=== PATIENT | male | born 1945 | race Caucasian/White ===

== ENCOUNTER 2017-05-01 10:00 | Emergency (ER) | payer OTHER, BC ==
--- NOTE | 2017-05-01 10:23 | PDOC ---
History of Present Illness - General Chief Complaint: Vomiting/Diarrhea Stated Complaint: CHILLS, VOMITING, DIARRHEA Time Seen by Provider: 05/01/17 10:23 History Source: Patient - History of Present Illness Initial Comments: 05/01/17 10:39 71 y/o male presents with a 2 day history of chills. Symptoms started suddenly Thursday evening at home after an afternoon of playing golf. Pt was unable to eat much on , had 3 episodes of non-bloody, non-bilious vomiting, and 1 episode of watery diarrhea. Pt has taken Aleve without much relief of symptoms. Pt felt warm, according to his , but did not take a temperature. Chills worsened this morning after breakfast. denies any recent travel, any sick contacts, or change in diet. Pt denies chest pain, SOB, urinary symptoms, abdominal pain. 05/01/17 10:46 Severity: moderate Associated Symptoms: reports: fever/chills, nausea/vomiting Aspirin Received prior to arrival: Yes: no aspirin today Past History - Past Medical History Allergies/Adverse Reactions: Allergies Allergy/AdvReac Type Severity Reaction Status Date / Time No Known Allergies Allergy Verified 05/01/17 10:19 Home Medications: Ambulatory Orders Aspirin Coated [Ecotrin -] 81 mg PO DAILY 05/01/17 Levofloxacin [Levaquin] 750 mg PO DAILY #10 tablet 05/01/17 Metoprolol Succinate [Toprol Xl] 50 mg PO DAILY 05/01/17 Naproxen Sodium [Aleve] 660 mg PO ONCE 05/01/17 Tamsulosin HCl [Flomax] 0.8 mg PO DAILY 05/01/17 Review of Systems - Review of Systems Able to Perform ROS?: Yes Is the patient limited Prydeinig proficient: No Constitutional: Yes: See HPI HEENTM: No: Symptoms Reported Respiratory: No: Symptoms reported Cardiac (ROS): No: Symptoms Reported ABD/GI: Yes: Symptoms Reported, See HPI : No: Symptoms Reported Musculoskeletal: No: Symptoms Reported Integumentary: No: Symptoms Reported Neurological: No: Symptoms reported Psychiatric: No: Anxiety, Depression Endocrine: No: Symptoms Reported Hematologic/Lymphatic: No: Symptoms Reported All Other Systems: Reviewed and Negative *Physical Exam - Physical Exam General Appearance: Yes: Nourished, Appropriately Dressed, Obese HEENT: positive: EOMI, EDMUNDO, Normal ENT Inspection Neck: positive: Trachea midline, Normal Thyroid Respiratory/Chest: positive: Lungs Clear, Normal Breath Sounds Cardiovascular: positive: Regular Rhythm, Regular Rate Gastrointestinal/Abdominal: positive: Normal Bowel Sounds, Soft Musculoskeletal: positive: Normal Inspection Extremity: positive: Normal Capillary Refill, Normal Inspection Integumentary: positive: Normal Color, Clammy Neurologic: positive: Fully Oriented, Alert, Normal Mood/Affect, Normal Response ED Treatment Course - LABORATORY CBC & Chemistry Diagram: 05/01/17 10:55 05/01/17 10:55 *DC/Admit/Observation/Transfer Diagnosis at time of Disposition: UTI (urinary tract infection) Qualifiers: Urinary tract infection type: site unspecified Hematuria presence: without hematuria Qualified Code(s): N39.0 - Urinary tract infection, site not specified Prostatitis Qualifiers: Prostatitis type: acute Qualified Code(s): N41.0 - Acute prostatitis - Discharge Dispostion Disposition: HOME Condition at time of disposition: Good - Prescriptions Prescriptions: Levofloxacin [Levaquin] 750 mg PO DAILY #10 tablet - Referrals Referrals: Ed Grayson MD [Primary Care Provider] - - Patient Instructions Printed Discharge Instructions: DI for Urinary Tract Infection (UTI), DI for Acute Prostatitis Additional Instructions: Mr Bianchi - Sorry that you feel so bad. Don't cover up when you get the shaking chills.... it will make them worse. Return to us if worse or new symptoms occur. Follow up with your doctor next week. Five 20 ounce bottles of water each day. Dre- Dr. Josh Santana - Post Discharge Activity
[2017-05-01] MEDS ORDERED: SODIUM CHLORIDE 1,000 ML IV STA (10:31)
[2017-05-01] MEDS ORDERED: ACETAMINOPHEN 1000 MG/100 ML VIAL (NON FORMULARY) IVPB ONE (10:33)
[2017-05-01 10:36] VITALS: BMI 36.9
[2017-05-01 11:13] LABS: BASOPHIL 0.6 % (0-2.0); EOSINOPHIL 0.4 % (0-4.5); MCH 28.8 pg (25.7-33.7); MEAN CELL VOLUME 87.2 fl (80-96); MEAN PLT VOLUME 8.4 fl (7.5-11.1); NEUTROPHILS 92.8 % (42.8-82.8); PLATELET COUNT 179 K/MM3 (134-434); RDW 13.5 % (11.9-15.9); WHITE BLOOD COUNT 7.3 K/mm3 (4.0-10.8)
[2017-05-01] MEDS ORDERED: ACETAMINOPHEN INJECTION 100 ML IVPB ONE (11:14)
[2017-05-01 11:28] LABS: ALBUMIN 4.1 g/dl (3.5-5.0); ALK PHOS 63 U/L (32-92); ANION GAP 10 (8-16); CALCIUM 8.6 mg/dl (8.4-10.2); CO2 26 mmol/L (22-28); GLUCOSE,RANDOM 132 mg/dl (74-106); SGOT/AST 27 U/L (10-42); SGPT/ALT 23 U/L (10-40); TOT PROT 7.2 g/dl (6.4-8.3)
[2017-05-01 11:31] LABS: ACTIVATED PTT 26.5 SECONDS (24.0-38.9)
[2017-05-01 11:36] LABS: INR 1.39 (0.82-1.09); PROTHROMBIN TIME (PATIENT) 15.5 SEC (10.2-13.0)
[2017-05-01 12:14] LABS: VENOUS PH 7.38 (7.32-7.42)
[2017-05-01 12:29] VITALS: BP 128/75; PULSE 107; TEMP 99.5
[2017-05-01 13:22] LABS: PH,URINE 5.5 (4.5-8); URINE APPEARANCE Clear; URINE BILIRUBIN Negative (NEGATIVE); URINE BLOOD Negative (NEGATIVE); URINE GLUCOSE (UA) Negative (NEGATIVE); URINE KETONE Trace (NEGATIVE); URINE NITRITE Negative (NEGATIVE)
[2017-05-01 13:23] LABS: URINE COLOR YELLOW; URINE LEUK ESTERASE TRACE (NEGATIVE); URINE PROTEIN 1+ (NEGATIVE)
[2017-05-01 13:24] LABS: URINE BACTERIA MODERATE /hpf (NEGATIVE); URINE RBC 0-3 /hpf (0-3)
[2017-05-01] MEDS ORDERED: SODIUM CHLORIDE 1,000 ML IV SCH (13:30)
[2017-05-01] MEDS ORDERED: LEVOFLOXACIN 750 MG IVPB 750 MG/150 ML BAG IVPB ONE ×2 (13:35→14:14)
[2017-05-01 14:45] LABS: CPK 161 IU/L (39-308); TROPONIN I < 0.02 ng/ml (0.00-0.05)
--- NOTE | 2017-05-02 19:34 | EKG ---
Test Reason : Blood Pressure : / mmHG Vent. Rate : 109 BPM Atrial Rate : 109 BPM P-R Int : 160 ms QRS Dur : 114 ms QT Int : 382 ms P-R-T Axes : 047 -33 024 degrees QTc Int : 514 ms SINUS TACHYCARDIA LEFT AXIS DEVIATION NONSPECIFIC ST AND T WAVE ABNORMALITY ABNORMAL ECG NO PREVIOUS ECGS AVAILABLE Confirmed by MARKELL JAMA MD ([id number]) on 05/02/2017 7:34:11 PM Referred By: MANJU Confirmed By:MARKELL JAMA MD
--- NOTE | 2017-05-02 21:03 | PDOC ---
Patient Follow-up (Call Back) - Post ED Follow - Up Condition at time of discharge: Good Disposition at time of original discharge: HOME Reason for Call Back: Abnwl. Lab (Patient's blood cultures show positive cocci in the anaerobic bottles. This is most likely secondary to contaminated however I did call patient to make sure he was feeling better patient said that he was feeling much better his symptoms had resolved and he was back to normal.) Signs/Symptoms Improved: Yes
== END 2017-05-01 15:30 | disposition home or self-care (01) ==
LOC: FER 10:00
PROC: 3E03329 Introduction of Other Anti-infective into Peripheral Vein, Percutaneous Approach (ICD-10-PCS; principal; 2017-05-01)
PROC: 3E0337Z Introduction of Electrolytic and Water Balance Substance into Peripheral Vein, Percutaneous Approach (ICD-10-PCS; 2017-05-01)
PROC: 3E033NZ Introduction of Analgesics, Hypnotics, Sedatives into Peripheral Vein, Percutaneous Approach (ICD-10-PCS; 2017-05-01)
DX: N39.0 Urinary tract infection, site not specified (principal); N41.0 Acute prostatitis
CPT/HCPCS: 36415; 71010-TC; 80053; 81003; 81015; 82550; 82553; 82803; 83605; 84484; 85025; 85610; 85730; 86850; 86900; 86901; 87040; 87077; 87086; 87804; 93005; 96361; 96365; 96375; 99284-25

== ENCOUNTER 2017-06-02 09:30 | Inpatient (IN) | payer OTHER, BC ==
[2017-05-28 09:54] VITALS: BMI 38.4
--- NOTE | 2017-05-29 09:15 | HP ---
[facility] - Chief Complaint Chief Complaint: right knee pain - Past Medical History Allergies/Adverse Reactions: Allergies Allergy/AdvReac Type Severity Reaction Status Date / Time No Known Allergies Allergy Verified 05/28/17 09:44 - Current Medications Current Medications: Home Medications Medication Instructions Recorded Aspirin Coated [Ecotrin -] 81 mg PO DAILY 05/01/17 Metoprolol Succinate [Toprol Xl] 50 mg PO DAILY 05/01/17 Naproxen Sodium [Aleve] 660 mg PO DAILY 05/01/17 Tamsulosin HCl [Flomax] 0.8 mg PO DAILY 05/01/17 Ferrous Sulfate [Iron] 325 mg PO DAILY 05/28/17 [facility] Physical Exam - Physical Examination General Appearance: Well Nourished, Well Developed, Alert & Oriented x3 ENT: Clear Lung: Normal air movement Heart: Regular rate & rhythm Extremities: Other (right knee- + swelling, + ttp, decr rom, nvi xrays show grade 4 tricompartmental djd) Neurological: Intact, Alert, Oriented Satellite Impression/Plan - Impression/Plan Impression: right knee djd Operative Procedure: right rekha tkr Date to be Performed: 06/02/17
[2017-06-02] MEDS ORDERED: oxyCODONE HCL 10 MG SUSTAINED ACTING TABLET PO ONE (10:01)
[2017-06-02] MEDS ORDERED: GABAPENTIN 300 MG CAPSULE (FP) PO ONE (10:01)
[2017-06-02] MEDS ORDERED: CEFAZOLIN 2 GM in DEXTROSE 5%-WATER - 50 ML IVPB ONE (10:01)
[2017-06-02] MEDS ORDERED: TRANEXAMIC ACID 1000 MG/10 ML VIAL IVPUSH ONE (10:01)
[2017-06-02] MEDS ORDERED: CELECOXIB 200 MG CAPSULE PO ONE (10:01)
[2017-06-02 10:42] LABS: INR 1.1 (0.82-1.09); PROTHROMBIN TIME (PATIENT) 12.3 SEC (10.2-13.0)
[2017-06-02] MEDS ORDERED: BUPIVACAINE HCL/PF (5 MG/ML) 30 ML VIAL IJ ONE (11:16)
[2017-06-02] MEDS ORDERED: MIDAZOLAM HCL 2 MG/2 ML SINGLE DOSE VIAL ONE ×2 (11:16→14:06)
[2017-06-02] MEDS ORDERED: SODIUM CHLORIDE 0.9% P/F 10 ML VIAL IJ ONE (11:16)
[2017-06-02] MEDS ORDERED: DEXAMETHASONE SOD PHOSPHATE/PF 10 MG/ML SDV ONE (11:16)
[2017-06-02] MEDS ORDERED: VANCOMYCIN 1,000 MG VIAL (RESTRICTED TO ID ONLY) ONE (12:15)
[2017-06-02] MEDS ORDERED: ceFAZolin SODIUM 1 GM VIAL ONE ×2 (12:15→13:19)
[2017-06-02] MEDS ORDERED: BUPIVACAINE HCL/PF 0.5% (5MG/ML) 10 ML VIAL ONE (13:03)
[2017-06-02] MEDS ORDERED: ONDANSETRON 4 MG/2 ML VIAL IVPUSH PRN (13:07)
[2017-06-02] MEDS ORDERED: MAGNESIUM HYDROX 2400MG/30ML ORAL SUSPENSION 30 ML CUP PO PRN (13:07)
[2017-06-02] MEDS ORDERED: MAG HYDROX/AL HYDROX/SIMETH 30 ML UNIT-DOSE CUP PO PRN (13:07)
[2017-06-02] MEDS ORDERED: LACTATED RINGERS SOLUTION 1,000 ML IV SCH (13:15)
[2017-06-02] MEDS ORDERED: TRANEXAMIC ACID 1000 MG/10 ML VIAL ONE ×2 (13:19→13:37)
[2017-06-02] MEDS ORDERED: oxyCODONE HCL 5 MG TABLET PO PRN (13:40)
--- NOTE | 2017-06-02 15:11 | OP ---
Operative Note - Note: Operative Date: 06/02/17 (marie) Pre-Operative Diagnosis: right knee djd Operation: right rekha tkr Post-Operative Diagnosis: Same as Pre-op Surgeon: Pete Singh Tree Puller: Alexander Riddle Anesthesiologist/FILM DEVELOPING MACHINE OPERATOR: Jose E Wyman Anesthesia: Spinal, Local Specimens Removed: bone fragments Estimated Blood Loss (mls): 100 Operative Report Dictated: Yes
--- NOTE | 2017-06-02 15:16 | SPEC ---
DATE OF OPERATION: 06/02/2017 PREOPERATIVE DIAGNOSIS: Degenerative joint disease, right knee. POSTOPERATIVE DIAGNOSIS: Degenerative joint disease, right knee. PROCEDURE: Right total knee replacement with robotic-assisted navigation (MAKOplasty). SURGICAL ATTENDING: Pete Singh MD BUFFET SERVER: ZEE Fitzgerald ANESTHESIA: Regional and spinal. CLOSURE: A Press-Fit Triathlon knee system with a 5 femur, 6 tibia, 9 polyethylene, a 35 patella; No. 1 Vicryl, fascia; 0 and 2-0 for subcutaneous; and 3-0 Monocryl subcuticular with skin glue for skin; 4-0 undyed Vicryl for pin sites. ESTIMATED BLOOD LOSS: Less than 100 mL. COMPLICATIONS: None. CONDITION: To recovery room in stable condition. DESCRIPTION OF OPERATIVE PROCEDURE: Patient was taken to the operating room on June 02, 2017. Regional and spinal anesthesia was administered by the anesthesiologist. IV Kefzol was administered prophylactically prior to the case as well as TXA. The right lower extremity was prepped and draped in the usual sterile fashion. The midline 10- to 12-cm longitudinal incision was made. Hemostasis was achieved with Bovie cautery. Sharp dissection was carried down to the extensor mechanism which was perform the procedure. Medial parapatellar arthrotomy was then performed, leaving a cuff of tissue for later closure. The patella was inverted and the knee was flexed up. The fat pad was excised. Subperiosteal dissection was done on the anteromedial proximal tibia until the knee was able to be brought forward. This was facilitated by taking the ACL, PCL and medial and lateral menisci. Checkpoints were placed in both the femur and in the tibia. Two parallel threaded pins were drilled superior to the knee joint through the already made incision from anterior to posterior just going through the anterior cortex but just engaging but not going through the posterior cortex. Two threaded pins were drilled through 2 small stab incisions in parallel fashion 1 handbreadth below the tibial tubercle through the anterior cortex of the tibia and engaging but not going through the posterior cortex. Both sets of pins were attached to navigation arrays for the CHEY system. The knee was then registered with the navigation system with center of rotation of the hip, medial and lateral malleoli and multiple sites both on the tibia and on the femur. Confirmation of excellent registration was confirmed by "popping the bubbles." At this time, the knee was thoroughly inspected to remove all osteophytes around the knee. The knee was then tensioned in varus/valgus at both full extension and at 90 degrees of flexion to ascertain our gaps. The virtual position of the components was optimized to ensure equal gaps throughout the range of motion. Once this was performed, the robot was brought into the field, was registered. The bone was cut as per the specifications on both the tibia and on the femur. The box cuts were then made as well. Excellent trial stability was obtained on the femur. The tibial baseplate was allowed to "find itself" and then was clipped into place. Confirmation of excellent external rotation of that component was confirmed by the navigation device as well.The patella was calibered for thickness and cut at the appropriate level. The appropriate lollipop was used to drill 3 holes in the patella and a trial asymmetric patellar button was applied. The knee was taken through a range of motion and found to have excellent stability from full extension to full flexion with excellent tracking of the patella. The trial components were then removed. The lug holes were drilled in the femur. The cementless keel was punched in the tibia. The real Press-Fit components were malleted into place, first with the tibia and then with the femur, and then the patella was crimped into place as well. The real polyethylene liner was then clipped into place. Range of motion, stability and tracking were as described earlier. The knee was thoroughly irrigated with copious amounts of irrigation. Vancomycin powder was placed inside the joint. The medial parapatellar arthrotomy was then closed using No. 1 Vicryl interrupted suture. Post closure of the arthrotomy, the knee was taken through a range of motion and found to have no undue tension on the repair. The subcutaneous was then pulse antibiotic irrigated, closed with 0 and 2-0 Vicryl and 3-0 Monocryl subcuticular with skin glue for the skin. Prior to closure, the checkpoints were removed as were the threaded pins. The tibial pin sites were closed with 4-0 undyed Vicryl. A sterile pressure Aquacel dressing was applied. No tourniquet was used during the case. The total blood loss was approximately 100 mL. No complication. Patient was transferred to recovery in stable condition. Jamie [id number]
[2017-06-02] MEDS ORDERED: ACETAMINOPHEN 325 MG TABLET (FP) ONE (16:05)
[2017-06-02] MEDS ORDERED: oxyCODONE HCL 5 MG TABLET ONE (16:12)
[2017-06-02] MEDS ORDERED: ONDANSETRON 4 MG/2 ML VIAL ONE (16:14)
[2017-06-02] MEDS ORDERED: oxyCODONE HCL 5 MG TABLET PO ONE (16:25)
[2017-06-02] MEDS ORDERED: ACETAMINOPHEN 325 MG TABLET (FP) PO ONE (16:28)
[2017-06-02] MEDS: ACETAMINOPHEN 325 MG TABLET (FP) PO SCH ×2 (17:35→21:16)
[2017-06-02] MEDS: oxyCODONE HCL 5 MG TABLET PO PRN (19:13)
[2017-06-02] MEDS ORDERED: CEFAZOLIN 2 GM in DEXTROSE 5%-WATER - 50 ML IVPB SCH (20:00)
[2017-06-02] MEDS: CEFAZOLIN 2 GM/D5W 2 GM/50 ML ML IVPB SCH (21:16)
[2017-06-02] MEDS: SENNOSIDES/DOCUSATE COMBO (SENNA PLUS) TABLET (UD) PO SCH (21:16)
[2017-06-03] MEDS: ACETAMINOPHEN 325 MG TABLET (FP) PO SCH ×4 (06:31→19:47)
[2017-06-03] MEDS: CEFAZOLIN 2 GM/D5W 2 GM/50 ML ML IVPB SCH (06:31)
--- NOTE | 2017-06-03 08:36 | PN ---
Progress Note (short form) - Note Progress Note: Ortho Pt seen and examined s/p right rekha tkr pod #1 Selected Entries 06/03/17 05:00 Temperature 98.6 F Pulse Rate 89 Respiratory 16 Rate Blood Pressure 139/84 Laboratory Tests 06/03/17 07:45 WBC Pending Hgb Pending Hct Pending Plt Count Pending dressing c/d/i, calf soft ,nt rom 0-40, nvi a/p PT dvt ppx pain control d/c home tomorrow if stable
[2017-06-03 08:44] LABS: HEMATOCRIT 44.6 % (35.4-49); HEMOGLOBIN 14.7 GM/dl (11.7-16.9); MCH 29.5 pg (25.7-33.7); MEAN CELL VOLUME 89.4 fl (80-96); MEAN PLT VOLUME 8.9 fl (7.5-11.1); PLATELET COUNT 218 K/MM3 (134-434); RBC 4.99 M/mm3 (4.00-5.60); RDW 13.6 % (11.9-15.9); WHITE BLOOD COUNT 11.4 K/mm3 (4.0-10.8)
[2017-06-03] MEDS: TAMSULOSIN HCL 0.4 MG CAP.ER.24H (FP) PO SCH (08:48)
[2017-06-03] MEDS: ASPIRIN 325 MG TABLET PO SCH (08:48)
[2017-06-03] MEDS: FERROUS SO4 325 MG TABLET (FP) PO SCH (09:26)
[2017-06-03] MEDS: PANTOPRAZOLE 40 MG TABLET (FP) PO SCH (09:26)
[2017-06-03] MEDS: SENNOSIDES/DOCUSATE COMBO (SENNA PLUS) TABLET (UD) PO SCH ×2 (09:27→21:20)
[2017-06-03] MEDS: MULTIVITAMINS (DAILY MVI) TABLET (FP) PO SCH (09:27)
[2017-06-03] MEDS: METOPROLOL SUCCINATE 50 MG TAB.SR.24H (FP) PO SCH (09:28)
[2017-06-03] MEDS: oxyCODONE HCL 5 MG TABLET PO PRN ×3 (10:36→19:48)
[2017-06-03] MEDS: KETOROLAC TROMETHAMINE 30 MG/1 ML VIAL IVPUSH SCH ×2 (13:20→17:45)
--- NOTE | 2017-06-03 13:26 | PN ---
Progress Note (short form) - Note Progress Note: 71M POD1 s/p right total knee replacement under spinal anesthetic with peripheral nerve blocks for post operative pain. Pt states that pain is well controlled, reports no anesthetic complications. Sensory and motor function is intact in bilateral lower extremities.
[2017-06-04] MEDS: ACETAMINOPHEN 325 MG TABLET (FP) PO SCH ×4 (05:26→20:13)
[2017-06-04] MEDS: KETOROLAC TROMETHAMINE 30 MG/1 ML VIAL IVPUSH SCH ×2 (05:27→15:18)
[2017-06-04] MEDS: oxyCODONE HCL 5 MG TABLET PO PRN ×2 (06:54→20:15)
[2017-06-04] MEDS: ASPIRIN 325 MG TABLET PO SCH (07:00)
[2017-06-04 08:10] LABS: HEMOGLOBIN 13.4 GM/dl (11.7-16.9)
[2017-06-04 08:17] LABS: HEMATOCRIT 41.1 % (35.4-49); MCH 29.1 pg (25.7-33.7); MCHC 32.6 g/dl (32.0-35.9); MEAN CELL VOLUME 89.3 fl (80-96); MEAN PLT VOLUME 8.9 fl (7.5-11.1); PLATELET COUNT 209 K/MM3 (134-434); RDW 13.8 % (11.9-15.9); WHITE BLOOD COUNT 11.2 K/mm3 (4.0-10.8)
[2017-06-04] MEDS: PANTOPRAZOLE 40 MG TABLET (FP) PO SCH (09:42)
[2017-06-04] MEDS: FERROUS SO4 325 MG TABLET (FP) PO SCH (09:42)
[2017-06-04] MEDS: SENNOSIDES/DOCUSATE COMBO (SENNA PLUS) TABLET (UD) PO SCH ×2 (09:42→21:50)
[2017-06-04] MEDS: TAMSULOSIN HCL 0.4 MG CAP.ER.24H (FP) PO SCH (09:43)
[2017-06-04] MEDS: MULTIVITAMINS (DAILY MVI) TABLET (FP) PO SCH (09:44)
[2017-06-04] MEDS: METOPROLOL SUCCINATE 50 MG TAB.SR.24H (FP) PO SCH (09:44)
[2017-06-04 22:29] VITALS: PULSE 94
[2017-06-05] MEDS: ACETAMINOPHEN 325 MG TABLET (FP) PO SCH ×2 (06:12→08:47)
[2017-06-05] MEDS: oxyCODONE HCL 5 MG TABLET PO PRN ×2 (06:15→08:47)
[2017-06-05] MEDS: KETOROLAC TROMETHAMINE 30 MG/1 ML VIAL IVPUSH SCH (06:16)
[2017-06-05 06:25] VITALS: BP 150/87; TEMP 98.1
[2017-06-05] MEDS: ASPIRIN 325 MG TABLET PO SCH (08:45)
[2017-06-05] MEDS: FERROUS SO4 325 MG TABLET (FP) PO SCH (08:45)
[2017-06-05] MEDS: TAMSULOSIN HCL 0.4 MG CAP.ER.24H (FP) PO SCH (08:46)
[2017-06-05] MEDS: PANTOPRAZOLE 40 MG TABLET (FP) PO SCH (08:46)
[2017-06-05] MEDS: SENNOSIDES/DOCUSATE COMBO (SENNA PLUS) TABLET (UD) PO SCH (08:46)
[2017-06-05] MEDS: MULTIVITAMINS (DAILY MVI) TABLET (FP) PO SCH (08:47)
--- NOTE | 2017-06-05 09:42 | DS ---
Physical Examination Vital Signs: Vital Signs Temperature 98.1 F 06/05/17 06:00 Pulse Rate 94 H 06/05/17 06:00 Respiratory Rate 18 06/05/17 07:06 Blood Pressure 150/87 06/05/17 06:00 O2 Sat by Pulse Oximetry (%) 95 06/05/17 07:06 Labs: CBC, BMP 06/04/17 07:00 Discharge Summary Reason For Visit: OSTEOARTHRITIS Procedures: Principal: s/p right rekha tkr Hospital Course: admitted for elective right rekha tkr, unventful post-op,stable for d/c Condition: Good - Instructions Diet, Activity, Other Instructions: Post-op Instructions-Total Knee Replacement Call the office for a follow-up appointment in 1 week - [phone] Aspirin 325mg daily for 6 weeks. Pain medication was sent into your pharmacy. Apply Graduated Compression Stockings (TEDs) to both lower extremities- remove daily for hygiene ONLY Apply Sequential Compression Device (SCDs) to both Lower extremities remove for PT and hygiene ONLY Apply cold packs to affected area for 15 minutes every 2 hours. Physical Therapist will come to your home for the first 5 days. You will be set up with outpatient PT at your first post-operative visit. Patient may ambulate as tolerated-encourage self care (at least every 2-3 hours while awake) with walker or cane Maintain Aquacel (waterproof) dressing to operative wound (will be removed by surgeon at first office visit) Shower with Aquacel dressing in place-if Aquacel integrity compromised, remove and apply dry sterile dressing and notify Orthopedist. DO NOT SHOWER unless Orthopedists approves without Aquacel dressing CONTACT THE OFFICE FOR ANY CHANGE IN YOUR CONDITION (for example-fever greater than 102 degrees, excessive bleeding from operative site, purulent drainage, severe swelling or pain) GO TO THE EMERGENCY ROOM IF THERE IS A MEDICAL EMERGENCY Knee Precautions: * Keep a rolled towel under affected heel while in bed or chair (to keep knee in extension) * Keep affected leg elevated except during mealtimes * DO NOT PLACE PILLOW UNDER AFFECTED KNEE * If you have any questions, please do not hesitate to call the office - . Referrals: Pete Singh MD [Staff Physician] - Disposition: VNS/HOME HEALTH CARE - Home Medications Comprehensive Discharge Medication List: Ambulatory Orders Metoprolol Succinate [Toprol Xl] 50 mg PO DAILY 05/01/17 Naproxen Sodium [Aleve] 660 mg PO DAILY 05/01/17 Tamsulosin HCl [Flomax] 0.8 mg PO DAILY 05/01/17 Ferrous Sulfate [Iron] 325 mg PO DAILY 05/28/17 Aspirin [ASA -] 325 mg PO DAILY@0800 tablet 06/02/17 Oxycodone HCl/Acetaminophen [Percocet 5-325 mg Tablet] 1 - 2 tab PO Q6H #50 tab MDD 8 06/02/17
--- NOTE | 2017-06-05 12:52 | PATH ---
Surgical Pathology Report Patient Name: NELIA NEELY Med. Rec. #: [id number] /Age/Gender: 1945 (Age: 71) / M Account: [id number] Location: [facility] MED-SURG Taken: 06/02/2017 Received: 06/02/2017 Reported: 06/05/2017 Physicians: Pete Singh M.D. Specimen(s) Received BONE RIGHT KNEE Clinical History Right knee osteoarthritis Final Diagnosis BONE, KNEE, RIGHT, TOTAL KNEE REPLACEMENT: BONE WITH DEGENERATIVE JOINT DISEASE AND SYNOVIUM. Electronically Signed Ellie Reddy M.D. Gross Description Received in formalin labeled "bone right knee," is an 11.5 x 10.5 x 2.3 cm aggregate of multiple nugent-yellow, irregular portions of bone and soft tissue. The tibial plateau measures 8.0 x 5.7 x 2.0 cm. There is a 1.3 cm in greatest dimension area of eburnation present. The remaining articular surfaces are nugent-yellow and focally granular. The underlying trabecular bone is yellow and hard. Roll Line Operator sections are submitted in one cassette, following decalcification. /06/04/2017 saudi06/04/2017
== END 2017-06-05 09:14 | disposition home health service (06) | DRG 470 ==
LOC: FM/S 09:37
PROVIDERS: ADMIT Orthopaedic Surgery; ATTEND Orthopaedic Surgery
PROC: 8E0Y0CZ Robotic Assisted Procedure of Lower Extremity, Open Approach (ICD-10-PCS; 2017-06-02)
PROC: 0SRC0JZ Replacement of Right Knee Joint with Synthetic Substitute, Open Approach (ICD-10-PCS; principal; 2017-06-02 13:41)
DX: M17.11 Unilateral primary osteoarthritis, right knee (principal); I10 Essential (primary) hypertension; E66.01 Morbid (severe) obesity due to excess calories; Z68.38 Body mass index [BMI] 38.0-38.9, adult
CPT/HCPCS: 36415; 73560-TC-RT; 85027; 85610; 85730; 88304-TC; 88311-TC; 94010; 94760; 97116-GP; 97162-GP

== ENCOUNTER 2021-01-11 10:04 | Emergency (ER) | payer OTHER, BC ==
[2021-01-11 10:13] VITALS: BMI 37.6
[2021-01-11] MEDS ORDERED: SODIUM CHLORIDE 0.9% 500 ML INFUS.BAG IV ONE (10:35)
[2021-01-11 11:10] LABS: BASO % 1.6 % (0-2.0); EOS % 0.5 % (0-4.5); HEMATOCRIT 47.1 % (35.4-49); HEMOGLOBIN 15.4 GM/dl (11.7-16.9); LYMPH % 6.6 % (8-40); MCH 29.3 pg (25.7-33.7); MCHC 32.8 g/dl (32.0-35.9); MEAN CELL VOLUME 89.3 fl (80-96); MEAN PLT VOLUME 8.3 fl (7.5-11.1); MONO % 7.2 % (3.8-10.2); NEUT % 84.1 % (42.8-82.8); PLATELET COUNT 231 10^3/uL (134-434); RBC 5.28 M/mm3 (4.00-5.60); RDW 14.4 % (11.9-15.9); WHITE BLOOD COUNT 13.6 K/mm3 (4.0-10.8)
[2021-01-11 11:18] LABS: ALBUMIN 4.4 g/dl (3.4-5.0); BILIRUBIN,TOTAL 0.3 mg/dl (0.2-1); CREATININE 0.8 mg/dl (0.55-1.3); EPITHELIAL CELLS MODERATE /hpf; TOT PROT 7.7 g/dl (6.4-8.2)
[2021-01-11] MEDS ORDERED: CEPHALEXIN MONOHYDRATE 500 MG CAPSULE (UD) PO ONE (12:36)
[2021-01-11] MEDS ORDERED: CEPHALEXIN MONOHYDRATE 500 MG CAPSULE (UD) ONE (12:38)
[2021-01-11 12:45] VITALS: BP 158/88; PULSE 92; TEMP 98.9
[2021-01-12 14:07] LABS: SARS-CoV-2 NAA Not Detected (Not Detected)
== END 2021-01-11 12:46 | disposition home or self-care (01) ==
LOC: FER 10:04
DX: N39.0 Urinary tract infection, site not specified (principal)
CPT/HCPCS: 36415; 80053; 81003; 81015; 85025; 87086; 99284-25; C9803; U0003; U0005

== ENCOUNTER 2021-06-16 08:56 | Emergency (ER) | payer OTHER, BC ==
[2021-06-16 09:18] VITALS: BMI 38.4
[2021-06-16 09:38] LABS: EPITHELIAL CELLS RARE /hpf
[2021-06-16 12:33] VITALS: BP 144/80; PULSE 94; TEMP 98.9
== END 2021-06-16 12:55 | disposition home or self-care (01) ==
LOC: FER 08:56
DX: N39.0 Urinary tract infection, site not specified (principal)
CPT/HCPCS: 74176-TC; 81003; 81015; 87086; 87186; 99284-25

== ENCOUNTER 2023-04-05 07:08 | Emergency (ER) | payer OTHER, BC ==
[2023-04-05 07:16] VITALS: BMI 41.0
[2023-04-05] MEDS ORDERED: METOCLOPRAMIDE HCL INJECTION 10 MG/2 ML VIAL IVPUSH ONE (07:44)
[2023-04-05] MEDS ORDERED: ACETAMINOPHEN 1000 MG/100 ML BAG IVPB ONE (07:46)
[2023-04-05] MEDS ORDERED: METOCLOPRAMIDE HCL INJECTION 10 MG/2 ML VIAL ONE ×2 (07:53→08:00)
[2023-04-05] MEDS ORDERED: ACETAMINOPHEN INJECTION 100 ML IVPB ONE (07:54)
[2023-04-05 08:29] LABS: HEMATOCRIT 42.3 % (35.4-49); HEMOGLOBIN 14.1 G/dL (11.7-16.9); MCH 30.1 pg (25.7-33.7); MCHC 33.3 g/dl (32.0-35.9); MEAN CELL VOLUME 90.2 fl (80-96); MEAN PLT VOLUME 7.6 fl (7.5-11.1); PLATELET COUNT 173.7 10^3/uL (134-434); RBC 4.69 10^6/uL (4.00-5.60); RDW 14.2 % (11.9-15.9); WHITE BLOOD COUNT 5.5 10^3/uL (4.0-10.8)
[2023-04-05 08:36] LABS: INR 1.09 (0.83-1.09); PROTHROMBIN TIME (PATIENT) 12.6 SEC (9.7-13.0)
[2023-04-05 08:50] LABS: BILIRUBIN,TOTAL 0.4 mg/dl (0.2-1); CALCIUM 8.7 mg/dl (8.5-10.1); CREATININE 0.8 mg/dl (0.6-1.3); POTASSIUM 4.5 mmol/L (3.5-5.1); TOT PROT 6.2 g/dl (6.4-8.2)
[2023-04-05 09:06] LABS: PLATELET ESTIMATE ADEQUATE
[2023-04-05 12:17] VITALS: BP 145/86; PULSE 88; RESP 16; TEMP 98.1
== END 2023-04-05 12:18 | disposition home or self-care (01) ==
LOC: FER 07:08
PROC: 3E033NZ Introduction of Analgesics, Hypnotics, Sedatives into Peripheral Vein, Percutaneous Approach (ICD-10-PCS; principal; 2023-04-05)
PROC: 3E033GC Introduction of Other Therapeutic Substance into Peripheral Vein, Percutaneous Approach (ICD-10-PCS; 2023-04-05)
DX: R51.9 Headache, unspecified (principal)
CPT/HCPCS: 36415; 70450-TC; 80053; 85027; 85610; 99284-25

== ENCOUNTER 2024-06-03 09:57 | Emergency (ER) | payer OTHER, BC ==
[2024-06-03 10:06] VITALS: BP 132/80; PULSE 112; RESP 16; TEMP 98.8; BMI 39.9
[2024-06-03] MEDS ORDERED: NITROFURANTOIN MONOHYD/M-CRYST 100 MG CAPSULE PO ONE (11:19)
[2024-06-03] MEDS: NITROFURANTOIN MACROCRYSTAL 50 MG CAPSULE (FP) PO SCH (11:21)
[2024-06-03 11:23] LABS: EPITHELIAL CELLS 0-5 /hpf
== END 2024-06-03 11:22 | disposition home or self-care (01) ==
LOC: FER 09:57
DX: N30.01 Acute cystitis with hematuria (principal)
CPT/HCPCS: 81003; 81015; 87086; 99283-25

== ENCOUNTER 2024-07-28 06:31 | Day surgery (SDC) | payer OTHER, BC ==
[2024-07-25 10:14] VITALS: BMI 40.6
[2024-07-28] MEDS ORDERED: LIDOCAINE HCL/PF 2% SDV 5ML VIAL ONE (07:21)
[2024-07-28] MEDS ORDERED: PROPOFOL 20 ML ONE (07:21)
[2024-07-28] MEDS ORDERED: MIDAZOLAM HCL 2 MG/2 ML SINGLE DOSE VIAL ONE (07:21)
[2024-07-28] MEDS ORDERED: LIDOCAINE HCL 1%, 10 MG/ML (20ML VIAL) ONE (07:29)
[2024-07-28] MEDS ORDERED: BUPIVACAINE HCL/PF 0.5% (5MG/ML) 10 ML VIAL ONE (07:29)
[2024-07-28] MEDS ORDERED: VANCOMYCIN 1,000 MG VIAL (RESTRICTED TO ID ONLY) ONE (07:29)
[2024-07-28] MEDS ORDERED: GENTAMICIN SO4 80 MG/2 ML VIAL ONE (07:29)
[2024-07-28] MEDS ORDERED: PROMETHAZINE HCL 25 MG/1 ML VIAL IVPB PRN (07:42)
[2024-07-28] MEDS ORDERED: ONDANSETRON 4 MG/2 ML VIAL IVPUSH PRN (07:42)
[2024-07-28] MEDS ORDERED: oxyCODONE HCL 5 MG TABLET PO PRN ×2 (07:42)
[2024-07-28] MEDS ORDERED: LACTATED RINGERS SOLUTION 1,000 ML IV SCH (07:45)
[2024-07-28] MEDS ORDERED: DEXAMETHASONE SOD PHOSPHATE 4 MG/1 ML VIAL ONE (07:56)
[2024-07-28] MEDS ORDERED: ceFAZolin SODIUM 1 GM VIAL ONE (07:56)
[2024-07-28] MEDS: ceFAZolin SODIUM 1 GM VIAL IVPB ONE (07:58)
[2024-07-28] MEDS ORDERED: DEXTROSE 5%-0.45% SALINE 1,000 ML IV SCH (08:00)
[2024-07-28] MEDS: BUPIVACAINE HCL/PF 0.5% (5 MG/ML) 30 ML VIAL IJ ONE ×3 (08:08)
[2024-07-28] MEDS: LIDOCAINE HCL 1%, 10 MG/ML (20ML VIAL) INF ONE ×3 (08:08)
[2024-07-28] MEDS ORDERED: ONDANSETRON 4 MG/2 ML VIAL ONE (08:20)
[2024-07-28] MEDS ORDERED: KETOROLAC TROMETHAMINE 30 MG/1 ML VIAL ONE (08:20)
[2024-07-28] MEDS ORDERED: ACETAMINOPHEN INJECTION 100 ML ONE (09:07)
[2024-07-28] MEDS: ACETAMINOPHEN 1000 MG/100 ML BAG IVPB ONE (09:10)
[2024-07-28 11:01] VITALS: RESP 16
[2024-07-28 12:06] VITALS: BP 155/92; PULSE 90; TEMP 97.5
== END 2024-07-28 12:25 | disposition home or self-care (01) ==
LOC: JASU-SURG 06:31
PROVIDERS: ATTEND Urology
PROC: 0VBH0ZZ Excision of Bilateral Spermatic Cords, Open Approach (ICD-10-PCS; principal; 2024-07-28 07:30)
DX: N43.3 Hydrocele, unspecified (principal)
CPT/HCPCS: 88302-TC; 94760; J0131